=== PATIENT | female | born 1975 | race African-American/Black ===

== ENCOUNTER 2017-01-24 18:42 | Emergency (ER) | payer BC ==
[~2017-01-24] VITALS: Ht 167.6 cm; Wt 105.0 kg
[~2017-01-24 18:42] MED LIST: LABE100T PO; METF500T4 PO
[2017-01-25] MEDS ORDERED: SODIUM CHLORIDE 0.9% 1,000 ML IV ONE (00:19)
[2017-01-25] MEDS ORDERED: KETOROLAC 30MG/ML VIAL IV STA (00:19)
[2017-01-25 00:45] LABS: CHLORIDE 106 mEq/L (98-107)
[2017-01-25 00:49] LABS: PROTHROMBIN TIME 10.5 sec
[2017-01-25 00:49] LABS: CLARITY URINE CLEAR (CLEAR); COLOR URINE YELLOW (YELLOW); GLUCOSE URINE NEGATIVE (NEGATIVE); KETONES URINE TRACE (NEGATIVE); LEUKOCYTE ESTERASE URINE NEGATIVE (NEGATIVE); NITRITE URINE NEGATIVE (NEGATIVE); OCCULT BLOOD URINE NEGATIVE (NEGATIVE); PROTEIN URINE NEGATIVE (NEGATIVE); SPECIFIC GRAVITY URINE 1.026 (1.005-1.030); UROBILINOGEN URINE 0.2 E.U./dL (0.2-1.0)
[2017-01-25 00:52] LABS: HCG SCREEN NEGATIVE
[2017-01-25 00:53] LABS: CARBON DIOXIDE 28 mEq/L (21-32)
[2017-01-25 00:56] LABS: BASOPHILS % 0.6 % (0.0-2.0); EOSINOPHILS % 2.3 % (0.0-5.0); HEMOGLOBIN. 12.7 g/dL (12.0-16.0); LYMPHOCYTES % 19.3 % (20.0-50.0); MEAN CORPUSCULAR HEMOGLOBIN 28.9 pg (28.0-32.0); MEAN CORPUSCULAR VOLUME 86.2 fL (81.0-99.0); MONOCYTES % 6.8 % (2.0-8.0); PLATELET 289 x1000/uL (130-400); RED BLOOD CELL COUNT 4.41 mill/uL (4.2-5.4); RED CELL DISTRIBUTION WIDTH 14.2 % (11.6-14.6)
[2017-01-25 02:21] VITALS: BP 147/89
== END 2017-01-25 02:25 | disposition home or self-care (01) ==
LOC: ER 23:53
DX: R10.9 Unspecified abdominal pain (principal); I10 Essential (primary) hypertension; Z88.6 Allergy status to analgesic agent; Z88.8 Allergy status to other drugs, medicaments and biological substances
CPT/HCPCS: 36415; 80053; 81003; 83690; 84703; 85025; 85610; 96374; 99284; J1885; J7030; Z7610